=== PATIENT | male | born 1950 | race Caucasian/White ===

== ENCOUNTER 2023-08-28 19:34 | Emergency (ER) | payer MEDICARE, SELFPAY ==
[2023-08-28] VITALS (7 sets, daily range): BP systolic 125–167; BP diastolic 61–81; BMI 23.4
[2023-08-28 20:13] LABS: % Basophils 0.2 % (0-2); % Eosinophils 1.1 % (0-6); % Immature Granulocytes 0.3 % (0-0.5); % Lymphocytes 8.7 % (20.5-51.1); % Monocytes 9.2 % (1.7-9.3); % Neutrophils 80.5 % (42.2-75.2); Absolute Eosinophils 0.1 10^3/uL (0-0.7); Absolute Lymphocytes 0.9 10^3/uL (1.2-3.4); Absolute Neutrophils 8.5 10^3/uL (1.4-6.5); Hematocrit 41.7 % (39.0-52.0); Hemoglobin 14.1 g/dL (13.0-18.0); Mean Corp Hgb Conc. 33.8 g/dL (33.0-37.0); Mean Corpuscular Hgb 30.6 pg (27.0-31.0); Mean Corpuscular Volume 90.5 fL (80.0-94.0); Mean Platelet Volume 9.3 fL (7.4-10.4); Nucleated Red Blood Cells % 0 % (-); Platelet Count 157 10^3/uL (130-400); Red Blood Cell Count 4.61 10^6/uL (4.70-6.10); White Blood Cell Count 10.6 10^3/uL (4.8-10.8)
[2023-08-28 20:28] LABS: ALT (SGPT) 22 U/L (0-50); AST (SGOT) 24 U/L (17-59); Albumin 4.1 g/dl (3.5-5.0); Alkaline Phosphatase 74 U/L (38-126); Blood Urea Nitrogen 24 mg/dl (9-20); Calcium 9.3 mg/dl (8.4-10.2); Carbon Dioxide 27 mmol/L (22-30); Chloride 100 mmol/L (98-107); Estimated Creatinine Clearance 81 ml/min; Glucose 101 mg/dl (70-99); Potassium 4.3 mmol/L (3.5-5.1); Sodium 137 mmol/L (135-145); Total Bilirubin 1.1 mg/dl (0.2-1.3); Total Protein 6.4 g/dl (6.3-8.2); eGFR > 60.00
[2023-08-28 20:37] LABS: NT-proBNP 230 pg/ml; Troponin I < 0.012 ng/ml
[2023-08-28 21:35] LABS: Lipase 242 U/L (23-300)
--- NOTE | 2023-08-28 22:55 | ED.GENMED ---
History of Present Illness
General
Chief Complaint: Chest Pain
Source: patient and ambulance crew
Exam Limitations: none
Time Seen by Provider: 08/28/23 21:02
Nursing documentation reviewed up to this point in time: agreed with
Travel History
Have you had any contact with someone who has COVID-19?: No
Do you have any symptoms of coronavirus? Fever > 100 degrees, chills, cough, shortness of breath, sore throat, loss of taste or smell, muscle aches, or headache?: No
History of Present Illness
History of Present Illness:
73-year-old male with past medical history of GERD, aortic insufficiency who presents to the emergency department for evaluation of chest/epigastric pain. Patient reports onset of symptoms around 5 PM while he was making dinner. He says he had
pressure sensation in the epigastric region radiating across his upper abdomen. He says that it also radiated up the center of his chest. He says that he was able to eat his full dinner (which consisted of a cabbage salad) and symptoms persisted.
He says that he took 2 doses of Gas-X at home and they did not immediately resolve his symptoms and so he called EMS to come to the emergency room. He says that shortly after arrival here in the emergency room his symptoms resolved and he is now
completely pain-free on my assessment�total duration of his symptoms was 3 to 4 hours. He denies any associated nausea or vomiting. Denies any associated shortness of breath. Was in his normal state of health prior to onset�has not had any recent
fevers, chills, coughing. He does note that over the past 5 to 6 weeks he has had occasional right upper abdominal discomfort�he says that he saw his primary who prescribed some outpatient labs which she had drawn today but has not yet received
results. No exertional symptoms patient says that he typically walks 5 miles a day without any issues.
Review of Systems
Review of Systems
All Other Systems: ROS reviewed and negative except as documented in HPI and ROS
Constitutional: Denies fever or chills
EENT: Denies sore throat or runny nose
Respiratory: Denies cough or trouble breathing
Cardiac: Reports chest pain; Denies palpitations
ABD/GI: Reports abdominal pain; Denies nausea, vomiting or diarrhea
: Denies flank pain
Musculoskeletal: Denies neck pain or back pain
Neurological: Denies dizzy, headache, weakness or numbness
Phy Exam
Physical Exam
Physical Exam:
General: Awake, alert, oriented x3; no acute distress
Head: Normocephalic, atraumatic
Eyes: Conjunctiva normal, sclera anicteric
Throat: Airway intact, handling secretions
Neck: Trachea midline, supple without meningismus
Lungs: Clear to auscultation bilaterally, no wheezing, rales, rhonchi
Heart: Regular rate and rhythm, no murmurs, gallops, or rubs
Abd: Soft, non distended, minimally tender epigastric region
Neuro: Cranial nerves grossly intact, speech fluid
Skin: no rash
Extremities: No edema in extremities, equal pulses in all extremities
Scores
Heart Failure Risk
Heart Failure Risk Score: Not Applicable
Heart Score for Chest Pain Patients
STEMI patient?: No
History: Slightly or Non-Suspicious
ECG: Normal
Age: >/= 65 years
Risk Factors: No Risk Factors
Troponin: </= Normal Limit
Heart Score for Chest Pain Patients: 2
Heart Score Risk: 2.5% MACE over next 6 weeks
Withdrawal Assessment of Alcohol
Withdrawal Assessment Completed?: Not applicable
Course
Orders/Labs/Results
Orders:
Orders
08/28/23 19:39
Electrocardiogram (*1) Urgent
Reason for Study: Other
Other Reason for Exam: Respiratory Distress
Cardiac Monitoring- Treatment ONCE
EKG- Treatment ONCE
IV Insert/Care/Rem.- Treatment PRN
CR Chest - 2 Views Urgent
Comment:
Reason For Exam: respiratory distress
O2 Therapy [RESP] Urgent
Titrate/Wean O2 to maintain O2 sat greater than (%): 93
Special Instructions: TO MAINTAIN CONTINUOUS O2 SATS >/= 93%
Pulse Ox/cont/shift [RESP] Urgent
Quantity: 1
Special Instructions: continuous pulse ox
08/28/23 20:01
Complete Blood Count/With Diff Urgent
Comprehensive Metabolic Panel Urgent
Lipase Urgent
NT-proBNP Urgent
Troponin I Urgent
08/28/23 22:10
US Abdomen Complete/Upper Urgent
Comment:
Reason For Exam: upper abd pain
08/28/23 23:40
Troponin I Urgent
Abnormal Lab Results
08/28/23
20:01
RBC 4.61 L 10^6/uL
(4.70-6.10)
Absolute Neuts (auto) 8.5 H 10^3/uL
(1.4-6.5)
Absolute Lymphs (auto) 0.9 L 10^3/uL
(1.2-3.4)
Absolute Monos (auto) 1.0 H 10^3/uL
(0.1-0.6)
Neutrophils % 80.5 H %
(42.2-75.2)
Lymphocytes % 8.7 L %
(20.5-51.1)
BUN 24 H mg/dl
(9-20)
Glucose 101 H mg/dl
(70-99)
08/28/23 20:01
08/28/23 20:01
Vital Signs
Initial and Last Documented VS:
Initial Vital Signs
Pulse Resp
81 13
08/28/23 19:42 08/28/23 19:42
Last Documented Vital Signs
Temp Pulse Resp BP Pulse Ox
37.3 C 86 9 150/81 99
08/28/23 19:45 08/28/23 20:45 08/28/23 20:45 08/28/23 20:00 08/28/23 20:45
MDM/Problems Addressed
Differential Diagnosis Includes:
GERD/gastritis, cholelithiasis, ACS
MDM/Problems Addressed:
73-year-old male presents to the emergency room for evaluation after an episode of chest pain/epigastric pain that lasted 3 to 4 hours and resolved after 2 doses of Gas-X. He is now asymptomatic. He has had occasional right upper abdominal
discomfort for the past 5 to 6 weeks. No clear relation to meals. No exertional symptoms. He is hypertensive but has otherwise normal vitals. Exam as above. EKG shows no STEMI. Plan placed IV check labs including a CBC and a CMP, lipase. Will
check serial troponins. Will check chest x-ray and an upper abdominal ultrasound. Monitor closely reassess after the above.
Initial labs reviewed: CBC shows no clinically significant abnormalities, CMP within normal limits. Lipase normal. Troponin negative x 1. Chest x-ray reviewed by me shows no acute disease. Awaiting rest of workup including repeat troponin and
upper abdominal ultrasound. Patient remains asymptomatic with reassuring vitals.
Ultrasound unremarkable�no cholelithiasis. Repeat troponin negative. Blood pressure normalized, vitals normal on reassessment. He has remained asymptomatic since my initial assessment. Suspect symptoms are likely related to significant
GERD/gastritis. I think he is stable for discharge at this point in time. Will start patient on PPI. Have him follow-up with his primary physician for reassessment. He feels comfortable with this plan. Spoke about return precautions all
questions answered.
Chronic conditions affecting care:
GERD
Acute Exacerbation and/or Progression of Chronic Illness:
Acutely hypertensive likely related to stress/anxiety with ED visit�no signs or symptoms of hypertensive emergency here. Blood pressure normalized. No indication for emergent antihypertensive therapy at present
Acute Exacerbation and/or Progression of Chronic Illness: HTN
*Radiology
Radiology exam reviewed: preliminary read by ED provider and radiology read reviewed
*Pulse Oximetry
Patient hypoxic: no
*EKG
Interpreted by ED Provider?: Yes
Heart Rate: 81
Rate: normal
Rhythm: sinus
[place]: left axis deviation
Interval: normal interval
QRS Pattern: right bundle branch block and left vent hypertrophy
Ischemia: no ischemia
*Critical Care Note
Total Time (30-74mins, 75-104mins- exclusive of procedures): Not Applicable
Data Reviewed
Source: patient, records and ambulance crew
ED Attending Note
-
Portions of this chart may have been created with voice recognition software.� Occasional wrong word or��sound alike� substitutions may have occurred due to the inherent limitations of voice recognition software.
Discharge Plan
Departure
Patient with high blood pressure during this ER visit?: Yes
Discharge Problem:
Chest pain
Instructions: Chest Pain PCP Follow Up
Prescriptions:
New
pantoprazole [Protonix] 40 mg tablet,delayed release (DR/EC)
40 mg PO DAILY Qty: 30 0RF
No Action
Clear Soluble Fiber Powder
1 tbsp PO DAILY
atorvastatin 10 mg Tablet
10 mg PO DAILY
propranolol 10 mg Tablet
10 mg PO BID
alprazolam 0.25 mg Tablet
0.25 mg PO TID PRN (Reason: anxiety)
tamsulosin [Flomax] 0.4 mg Capsule
0.4 mg PO BID
loratadine [Claritin] 10 mg Tablet
10 mg PO DAILY PRN (Reason: allergies)
Referrals:
Cash Martin MD [Family Provider] - Follow up in 5-7 days
Activity Restrictions/Additional Instructions:
Thank you for visiting the Emergency Department at [facility].
1. Please schedule a follow up appointment as directed. Call first thing tomorrow morning to make an appointment.
2. If indicated, please take your medications as instructed and indicated on discharge paperwork.
3. If any of your symptoms do not improve, or persist, or become more severe within 6-12 hours, please return to the emergency department for further care.
4. Please return to the emergency department if you develop a headache, neck pain/stiffness, fever greater than 100.4F, chest pain, shortness of breath, persistent nausea, vomiting, slurred speech, difficulty walking, numbness/tingling, weakness,
signs of infection or any other symptoms that are worrisome to you.
Please call [phone] if you have any questions.
Interventions
Interventions:
*Risk Screen - Suicide Last Done: 08/28/23 19:45
*General Assessment Last Done: 08/28/23 19:45
*Neglect/Abuse Screening Last Done: 08/28/23 19:45
ED- Fall Risk Assessment Last Done: 08/28/23 19:45
*ED COVID-19 Vaccine History Last Done: 08/28/23 19:45
ED- Cardiac Assessment Last Done: 08/28/23 19:50
[2023-08-29] VITALS: BP 124/63
[2023-08-29 00:12] LABS: Troponin I < 0.012 ng/ml
== END 2023-08-29 00:55 | disposition home or self-care (01) ==
LOC: EMR 19:34
PROVIDERS: Emergency Medicine; EMERGENCY PHYSICIAN Emergency Medicine; FAMILY PHYSICIAN Family Medicine
DX: R07.89 Other chest pain (principal); R10.13 Epigastric pain; I10 Essential (primary) hypertension; I35.1 Nonrheumatic aortic (valve) insufficiency; K21.9 Gastro-esophageal reflux disease without esophagitis
CPT/HCPCS: 99284; 71046; 76700; 80053; 83690; 83880; 84484; 85025; 93005